=== PATIENT | male | born 1955 | race Caucasian/White ===

== ENCOUNTER 2023-01-24 01:56 | Day surgery (SDC) | payer BC, SELFPAY ==
[2023-01-10 13:40] VITALS: BMI 24.5
--- NOTE | 2023-01-23 12:06 | PM.HPGS ---
History of Present Illness History of Present Illness Consent: Risks, benefits, and alternatives have been discussed and questions answered. Patient agrees to proceed with procedure. Chief complaint: neoplasm screening Narrative: Juan Howe is a 67 year old male who was referred for colon cancer screening. Review of Systems Review of Systems: All systems reviewed & are unremarkable except as noted in HPI and below [facility] Social History Social History Smoking status: Never smoker Alcohol intake: never Substance use: never Substance use type: does not use Living arrangements: with family Spiritual care concerns: No Meds Home Medications and Allergies Home Medications Medication Instructions Recorded Confirmed Type aspirin 81 mg chewable tablet 81 mg PO EVERY OTHER DAY 01/10/23 01/24/23 History atorvastatin 40 mg tablet 40 mg PO DAILY 01/10/23 01/24/23 History tamsulosin 0.4 mg capsule 0.4 mg PO DAILY 01/10/23 01/24/23 History Allergies Allergy/AdvReac Type Severity Reaction Status Date / Time No Known Allergies Allergy Verified 01/24/23 06:15 Exam Resp: Auscultation: clear to auscultation bilaterally Cardio: Rate: regular rate Rhythm: regular rhythm GI: GI Palp: Yes Soft to palpation and No Tenderness to palpation present (GI) Assessment and Plan Assessment and plan (1) Colon cancer screening: Code(s): Z12.11 - Encounter for screening for malignant neoplasm of colon Status: Acute Assessment and Plan: Colonoscopy with possible biopsy or polypectomy or cautery or injection of substances.
[2023-01-24 06:17] VITALS: BP 118/80; PULSE 80; RESP 16; TEMP 36.2; O2SAT 99
[2023-01-24] MEDS: LACTATED RINGERS 1,000 ML 150 ML IV CONT (06:26)
--- NOTE | 2023-01-24 07:22 | P.PNAN_ITS ---
Anes - Initial Pre Proc Eval Procedure: Operation Date: 01/24/23 07:30 Proposed Procedures p Screening Colonoscopy - Juan Pablo Lott MD Date/Time: 01/24/23 07:22 Surgeon: Juan Pablo Lott MD Pre Op Diagnosis: neoplasm screening Patient Data Age: 67 Gender: M Height: 1.68 m Weight: 71.4 kg Last Vital Signs Temp 97.1 F L 01/24/23 06:17 Pulse 80 01/24/23 06:17 Resp 16 01/24/23 06:17 BP 118/80 01/24/23 06:17 Pulse Ox 99 01/24/23 06:17 O2 Del Method Room Air 01/24/23 06:17 Allergies Allergy/AdvReac Type Severity Reaction Status Date / Time No Known Allergies Allergy Verified 01/24/23 06:15 Home Medications Medication Instructions Recorded Confirmed Type aspirin 81 mg chewable tablet 81 mg PO EVERY OTHER DAY 01/10/23 01/24/23 History atorvastatin 40 mg tablet 40 mg PO DAILY 01/10/23 01/24/23 History tamsulosin 0.4 mg capsule 0.4 mg PO DAILY 01/10/23 01/24/23 History Patient hx anesthesia problems: none Family hx anesthesia problems: none Results Review: All pre-operative results and documents have been reviewed as part of the pre- operative evaluation. [facility] Social History Social History Smoking status: Never smoker Alcohol intake: never Substance use: never Substance use type: does not use Living arrangements: with family Spiritual care concerns: No Anes - Eval Final PreProcedure Day of Procedure 01/24/23 07:22 Patient weight: normal Heart: regular rate and rhythm Lungs: clear to auscultation Airway: Mallampati scale class II Neurological: alert and oriented Last oral intake: >/= 8 hours ASA classification: II Emergent: no Anesthetic plan: proceed Anesthesia type and monitoring: general GIVS and standard monitoring Results Review: All pre-operative results and documents have been reviewed as part of the pre- operative evaluation. Informed Consent: The patient's anesthetic plan and its attendant risks and benefits were discussed with the patient/family/POA. Questions were solicited and answers provided to the satisfaction of the patient/family/POA.
[2023-01-24 07:48] VITALS: BP 86/53; PULSE 68; RESP 21; O2SAT 97
[2023-01-24 07:58] VITALS: BP 87/56; PULSE 66; RESP 18; O2SAT 97
[2023-01-24 08:08] VITALS: BP 117/78; PULSE 69; RESP 21; O2SAT 100
== END 2023-01-24 08:18 | disposition home or self-care (01) ==
PROVIDERS: PCP Nurse Practitioner Family; Visit Provider Internal Medicine Gastroenterology
PROC: 0DJD8ZZ Inspection of Lower Intestinal Tract, Via Natural or Artificial Opening Endoscopic (ICD-10-PCS; CPT 45378; principal; 2023-01-24 07:30)
DX: Z12.11 Encounter for screening for malignant neoplasm of colon (principal); D12.8 Benign neoplasm of rectum; K52.89 Other specified noninfective gastroenteritis and colitis; Z79.82 Long term (current) use of aspirin
CPT/HCPCS: 45385; 88305; J2704; J7120